=== PATIENT | female | born 1995 | race Caucasian/White ===

== ENCOUNTER 2017-03-13 16:56 | Emergency (ER) | payer OTHER ==
[2017-03-13 17:07] VITALS: BP 125/61
--- NOTE | 2017-03-13 18:31 | ED ---
Jaylon Murray Auryana, scribed for Gennaro Wu MD on 03/13/17 at 1741 . - HPI Summary HPI Summary: 21 year old female presents to ED in active labor - 39 weeks . Patient is having contracts less than 4 minutes apart. She denies any presence of blood. Patient is currently on Submutex treatment/therapy. Her PLASTIC PRODUCTS SALES REPRESENTATIVE is Dr. Fernandez in [place] - reports that they do not have a pediatric NICU and thus was told she would eventually have to give here at [facility]. (both vaginal births). PMHx is significant for brain surgery,and appendectomy. - History of Current Complaint Chief Complaint: EDOBProblems Stated Complaint: PT 39 WKS PREG/LABOR Time Seen by Provider: 03/13/17 17:05 Hx Obtained From: Patient Chief Complaint: Other: - labor in progress Onset/Duration: Started Minutes Ago Timing: Constant Severity: Severe Current Severity: Severe Pain Intensity: 10 Location of Pain: Other: - labor contraction Character: Cramping - severe Associated Signs and Symptoms: Positive: Negative. Negative: Vaginal Bleeding or Discharge - Allergies/Home Medications Allergies/Adverse Reactions: Allergies Allergy/AdvReac Type Severity Reaction Status Date / Time Chocolate Allergy Intermediate Hives Verified 03/13/17 17:30 dairy Allergy Intermediate Vomiting Uncoded 03/13/17 17:30 PMH/Surg Hx/FS Hx/Imm Hx Endocrine/Hematology History: Denies: Hx Diabetes Cardiovascular History: Denies: Hx Congestive Heart Failure, Hx Pacemaker/ICD Sensory History: Denies: Hx Hearing Aid Neurological History: Reports: Other Neuro Impairments/Disorders - subdural hematoma Psychiatric History: Denies: Hx Panic Disorder - Cancer History Cancer Type, Location and Year: cervical - Surgical History Surgery Procedure, Year, and Place: craniotomy, appendectomy Hx Anesthesia Reactions: No - Immunization History Date of Tetanus Vaccine: UTD Infectious Disease History: No Infectious Disease History: Denies: Traveled Outside the [place] in Last 30 Days - Family History Known Family History: Positive: Diabetes, Respiratory Disease - ASTHMA - Social History Alcohol Use: None Hx Substance Use: No Substance Use Type: Reports: None Hx Tobacco Use: Yes Smoking Status (MU): Light Every Day Tobacco Smoker Review of Systems Constitutional: Negative Eyes: Negative ENT: Negative Cardiovascular: Negative Respiratory: Negative Gastrointestinal: Negative Genitourinary: Negative Positive: Other - labor contractions Skin: Negative Neurological: Negative Psychological: Normal All Other Systems Reviewed And Are Negative: Yes Physical Exam - Summary Physical Exam Summary: VITAL SIGNS: Reviewed. GENERAL: Patient is a well-developed and nourished female who is lying comfortable in the stretcher. Patient is not in any acute respiratory distress. HEAD AND FACE: Normocephalic and atraumatic. EYES: PERRLA, EOMI x 2, No injected conjunctiva. EARS: Hearing grossly intact. Ear canals and tympanic membranes are WNL. MOUTH: Oropharynx within normal limits. NECK: Supple, trachea is midline, no adenopathy, no JVD. CHEST: Symmetric, no tenderness at palpation LUNGS: Clear to auscultation bilaterally. No wheezing or crackles. CVS: RRR, S1 and S2 present, no murmurs or gallops appreciated. ABDOMEN: Abdominal distention secondary to . Positive bowel sounds. No rebound no guarding, and no masses palpated. No abdominal bruit or pulsations. EXTREMITIES: FROM in all major joints, no edema, no cyanosis or clubbing. NEURO: Alert and oriented x 3. No acute neurological deficits. Speech is normal. SKIN: Dry and warm - Physical Exam Triage Information Reviewed: Yes Vital Signs Reviewed: Yes Diagnostics - Vital Signs Vital Signs Temp Pulse Resp BP Pulse Ox 03/13/17 17:06 98.3 F 86 20 125/61 99 03/13/17 17:02 98.1 F 77 16 125/61 100 - Laboratory Lab Statement: Any lab studies that have been ordered have been reviewed, and results considered in the medical decision making process. Course/Dx - Course Assessment/Plan: 21 year old female presents to ED in active labor. Patient is having contracts less than 4 minutes apart. She denies any presence of blood. Patient is currently on Subutex treatment/therapy. Her PLASTIC PRODUCTS SALES REPRESENTATIVE is Dr. Fernandez in [place] - reports that they do not have a pediatric NICU and thus was told she would eventually have to give here at [facility]. (both vaginal births). PMHx is significant for brain surgery,and appendectomy. In the ED she is anxious and having contractions every 4 min. SHe has no ROM. She did not allow me to do a pelvic exam because she thought the baby was . We spoke with Dr. Chavarria, who requested patient to be transported immediately to L&D department here at [facility]. I personally transported the patient to the labor and delivery department. She still is feeling cramping but no ruptured membranes. Dr. Chavarria will continue care of patient. - Differential Diagnosis/HQI/PQRI: Other: - Active labor - Diagnoses Provider Diagnoses: , Active labor at term Discharge - Discharge Plan Condition: Stable Disposition: ADMITTED TO [facility] The documentation as recorded by the Jaylon rahman Auryana accurately reflects the service I personally performed and the decisions made by me, Gennaro Wu MD.
== END 2017-03-13 17:36 | disposition short-term general hospital (02) ==
LOC: ED 16:56
DX: Z34.83 Encounter for supervision of other normal pregnancy, third trimester (principal); Z90.89 Acquired absence of other organs
CPT/HCPCS: 36415; 86703; 99282

== ENCOUNTER 2017-04-24 16:36 | Emergency (ER) | payer OTHER ==
[2017-04-24] MEDS ORDERED: Ketorolac INJ* 30 MG/ML 1 ML VIAL IV PUSH ONE (17:45)
[2017-04-24] MEDS ORDERED: NS 0.9% 1000 ML* 1,000 ML IV ONE (17:46)
[2017-04-24] MEDS ORDERED: Azithromycin TAB* 250 MG PO ONE (18:01)
[2017-04-24] MEDS ORDERED: cefTRIAXone VIAL(*) 1,000 MG VIAL IM ONE (18:01)
[2017-04-24] MEDS ORDERED: metroNIDAZOLE TAB* 250 MG PO ONE (18:03)
[2017-04-24 18:30] LABS: Hematocrit 38 % (35-47); Hemoglobin 12.9 g/dl (12.0-16.0); Mean Corpuscular HGB Conc 33 g/dl (31-36); Mean Corpuscular Hemoglobin 30 pg (27-31); Mean Corpuscular Volume 89 fL (80-97); Mean Platelet Volume 9 um3 (7.4-10.4); Red Blood Count 4.31 10^6/ul (4.0-5.4); Red Cell Distribution Width 18 % (10.5-15); White Blood Count 7.7 10^3/ul (3.5-10.8)
[2017-04-24 18:45] LABS: Albumin 4.3 g/dL (3.2-5.2); Calcium 9.2 mg/dL (8.6-10.3); EGFR African American 94.1 (>60); EGFR Non-African American 73.2 (>60); Globulin 2.6 g/dL (2-4); Potassium 3.7 mmol/L (3.5-5.0); Total Bilirubin 0.5 mg/dL (0.2-1.0); Total Protein 6.9 g/dL (6.4-8.9)
--- NOTE | 2017-04-24 18:48 | RAD ---
HISTORY: Abdominal pain, evaluate for retained products, endometritis COMPARISONS: None relevant available time dictation TECHNIQUE: Multiple transverse and longitudinal ultrasound images were obtained of the pelvis using grayscale, color Doppler, and spectral Doppler imaging using the transabdominal transducer. FINDINGS: UTERUS: The uterus measures 11.8 x 7.3 x 7.2 cm. The uterus is heterogeneous and enlarged, consistent with the recent state. ENDOMETRIUM: The endometrial stripe is smooth. The endometrium measures 0.7 cm in thickness. There is a small amount of fluid within the endometrial cavity. There is no hypervascularity to suggest retained products of conception. CUL-DE-SAC: There is a small amount of fluid within the pelvic cul-de-sac. RIGHT OVARY: The right ovary measures 2.8 x 1.7 x 2.9 cm. Normal arterial and venous waveforms are identifiable within the ovary on spectral Doppler imaging. LEFT OVARY: The left ovary measures 3.1 x 1.5 x 2.8 cm. Normal arterial and venous waveforms are identifiable within the ovary on spectral Doppler imaging. BLADDER: The bladder is not well visualized. OTHER: None IMPRESSION: 1. UTERUS. 2. SMALL AMOUNT OF FLUID WITHIN THE ENDOMETRIAL CAVITY. NO HYPERVASCULARITY TO SUGGEST RETAINED PRODUCTS OF CONCEPTION. 3. SMALL AMOUNT OF FLUID WITHIN THE PELVIC CUL-DE-SAC.
[2017-04-24] MEDS ORDERED: Lidocaine 1%* 5 ML VIAL INJ ONE (18:54)
[2017-04-24 20:14] LABS: Urine Bacteria 1+ (Absent); Urine Bilirubin Negative (Negative); Urine Glucose Negative (Negative); Urine Nitrite Positive (Negative)
[2017-04-24 22:23] VITALS: BP 96/56
--- NOTE | 2017-04-25 07:59 | ED ---
Progress - Progress Note Progress Note: called pt left message with family member that she needs to return call to ED and return to ED, will inform pt on her call back that her samples were unfortunately lost due to mislabeling and she needs to return to ER Course/Dx - Diagnoses Provider Diagnoses: abnormal vaginal discharge
== END 2017-04-24 22:22 ==
LOC: ED 16:36
DX: N89.8 Other specified noninflammatory disorders of vagina (principal)
CPT/HCPCS: 36415; 76856; 80053; 81003; 81015; 84702; 85027; 87077; 87086; 87186; 87480; 87491; 87510; 87591; 87661; 96360; 96372; 99283; A9270-GY; J0696; J1885

== ENCOUNTER 2017-04-25 12:06 | Emergency (ER) | payer OTHER ==
[2017-04-25 12:18] VITALS: BP 97/58
--- NOTE | 2017-04-25 16:31 | ED ---
GI/ HPI - HPI Summary HPI Summary: 22 female presents to have vaginal cultures re-done due to an issue with cultures obtained yesterday. Same symptoms as yesterday, including discharge with odor and some lower abdominal pain, with some improvement after first day dose of antibiotics. No other complaints. Patient was treated for V and STDs at yesterday's visit. Is here for diagnostic purposes only. - History of Current Complaint Chief Complaint: EDUrogenitalProblems Time Seen by Provider: 04/25/17 12:59 Stated Complaint: RECHECK Hx Obtained From: Patient Onset/Duration: Started Days Ago Timing: Constant Pain Intensity: 2 Pain Characteristics: Dull Additional Signs & Symptoms: Positive: Vaginal Bleeding, Vaginal Discharge - Allergy/Home Medications Allergies/Adverse Reactions: Allergies Allergy/AdvReac Type Severity Reaction Status Date / Time Chocolate Allergy Intermediate Hives Verified 04/25/17 12:16 dairy Allergy Intermediate Vomiting Uncoded 04/25/17 12:16 PMH/Surg Hx/FS Hx/Imm Hx Endocrine/Hematology History: Denies: Hx Diabetes Cardiovascular History: Denies: Hx Congestive Heart Failure, Hx Pacemaker/ICD Sensory History: Denies: Hx Hearing Aid Neurological History: Reports: Other Neuro Impairments/Disorders - subdural hematoma Psychiatric History: Denies: Hx Panic Disorder - Cancer History Cancer Type, Location and Year: cervical - Surgical History Surgery Procedure, Year, and Place: craniotomy, appendectomy Hx Anesthesia Reactions: No - Immunization History Date of Tetanus Vaccine: UTD Infectious Disease History: Denies: Traveled Outside the [place] in Last 30 Days - Family History Known Family History: Positive: Diabetes, Respiratory Disease - ASTHMA - Social History Alcohol Use: None Hx Substance Use: No Substance Use Type: Reports: None Substance Use Comment - Amount & Last Used: Subutex 8mg qd po Hx Tobacco Use: Yes Smoking Status (MU): Former Smoker Type: Cigarettes Review of Systems Constitutional: Negative Cardiovascular: Negative Respiratory: Negative Positive: Abdominal Pain Positive: see HPI, discharge All Other Systems Reviewed And Are Negative: Yes Physical Exam Triage Information Reviewed: Yes Vital Signs On Initial Exam: Initial Vitals Temp Pulse Resp BP Pulse Ox 97.8 F 55 16 97/58 98 04/25/17 12:16 04/25/17 12:16 04/25/17 12:16 04/25/17 12:16 08/27/17 12:16 Vital Signs Reviewed: Yes Appearance: Positive: Well-Appearing, No Pain Distress, Well-Nourished Skin: Positive: Warm, Skin Color Reflects Adequate Perfusion, Dry Head/Face: Positive: Normal Head/Face Inspection Eyes: Positive: Conjunctiva Inflammed ENT: Positive: Normal ENT inspection, Hearing grossly normal Neck: Positive: Supple Respiratory/Lung Sounds: Positive: Clear to Auscultation, Breath Sounds Present. Negative: Rales, Rhonchi, Wheezes Cardiovascular: Positive: Normal, RRR, Pulses are Symmetrical in both Upper and Lower Extremities. Negative: Murmur, Rub Abdomen Description: Positive: Nontender, No Organomegaly, Soft. Negative: Bruit, CVA Tenderness (R), CVA Tenderness (L), Distended, Guarding, McBurney's Point Tenderness, Peritoneal Signs Bowel Sounds: Positive: Present Pelvic Exam: Positive: external exam normal, speculum exam normal - besides discharge, bimanual exam normal, no cerv. motion tender, no masses, discharge - green purulent discharge coming from cervical os. Negative: active bleeding, tender w/ cervical motion Musculoskeletal: Positive: Normal, Strength/ROM Intact Neurological: Positive: Normal, Sensory/Motor Intact, Alert, Oriented to Person Place, Time Diagnostics - Vital Signs Vital Signs Temp Pulse Resp BP Pulse Ox 04/25/17 12:16 97.8 F 55 16 97/58 98 - Laboratory Lab Statement: Any lab studies that have been ordered have been reviewed, and results considered in the medical decision making process. GIGU Course/Dx - Course Course Of Treatment: cultures were obtained. patient already treated for both BV and STDs yesterday visit with flagyl and ceftriaxone. Patient feels somewhat better. Stil having discharge with some lower abdominal pain. Here for diagnostic purposes due to losing yesterdays obtained cultures. pending results , although already treated. aware of worsening signs and symptoms - Diagnoses Differential Diagnoses - Female: Other - to obtain vaginal cultures Provider Diagnoses: Vaginal discharge, Encounter for routine laboratory testing Discharge - Discharge Plan Condition: Stable Disposition: HOME Referrals: Laine Segundo MD [Primary Care Provider] - Additional Instructions: Continue medications as directed. You will hear about culture results if positive in a few days. Worse symptoms please return.
== END 2017-04-25 15:07 | disposition home or self-care (01) ==
LOC: ED 12:06
DX: N89.8 Other specified noninflammatory disorders of vagina (principal)
CPT/HCPCS: 87480; 87510; 87661; 99281

== ENCOUNTER 2017-11-17 10:16 | Emergency (ER) | payer OTHER, MEDICAID ==
[2017-11-17] MEDS ORDERED: cefTRIAXone VIAL(*) 1,000 MG VIAL IM ONE (13:01)
--- NOTE | 2017-11-17 14:16 | RAD ---
Indication: Bilateral pelvic pain. Comparison: April 24, 2017 Technique: Transvaginal pelvic ultrasound. Report: 7.6 x 5.0 x 5.1 cm retroverted uterus. IUD appears in appropriate position in the endometrial cavity. Physiologic small volume of free fluid in the cul-de-sac. 2.8 x 1.9 x 2.6 cm RIGHT ovary with documented vascular flow is remarkable for small follicles only. 3.7 x 1.9 x 1.8 cm LEFT ovary with documented vascular flow is remarkable for small follicles only. No visualized extra ovarian adnexal region lesions evident. IMPRESSION: 1. IUD appears in appropriate position. 2. Physiologic small volume of free fluid. 3. No suspicious ovarian or extraovarian adnexal region lesion evident.
--- NOTE | 2017-11-17 14:27 | UC ---
Servando Murray Jennifer, scribed for [facility]Bhaskar MD on 11/17/17 at 1200 . Abdominal Pain Female HPI - HPI Summary HPI Summary: In Room: The patient is a 22 year old female who complains of lower abdominal pain, fever, and chills that began three days ago. The patient reports that she is very prone to UTIs. During her last , she had a UTI that was resistant to antibiotics and had to stay at [facility] for two weeks in January 2017. The patient reports she woke up this morning with chills and nausea. She vomited last night but denies vomiting and diarrhea today. Jumping aggravates her abdominal pain. She adds that she hasnt been able to urinate for the past week, and reports dysuria when she tries to urinate. She states that she always feels dehydrated and keeps drinking water but still cannot urinate. The patient denies vaginal discharge, lower back pain, and chest pain. She additionally complains of her head feeling in the clouds and swelling behind the left ear. She has had a total of 6 pregnancies, which include 2 miscarriages, 3 live births, and 1 . The patient additionally adds that she had PID from chlamydia in the past. MD Note: Vital signs stable, afebrile, pulse ox 100. Pain 6/10 abdominal. No alcohol, no smoking. A previous history of visits for vomiting and fever. Previous history of UTI. Previous history of subdural hematoma. Nurse note: fever chills abd pain x 2 days - History of Current Complaint Chief Complaint: UCAbdominalPain Stated Complaint: ABD PAIN, PAINFUL URINATION Time Seen by Provider: 11/17/17 11:42 Hx Obtained From: Patient Hx Last Menstrual Period: 11/12/16 Onset/Duration: Sudden Onset, Lasting Days - 3 days, Still Present, Worse Since Timing: Constant Severity Initially: Moderate Severity Currently: Moderate Pain Intensity: 6 Pain Scale Used: 0-10 Numeric Location: Discrete At: RLQ, Discrete At: LUQ Radiates: No Aggravating Factor(s): Other: - Jumping Alleviating Factor(s): Nothing Associated Signs and Symptoms: Positive: Other: - fever, chills, nausea, vomiting, inability to urinate, head feeling "in the clouds", swelling behind left ear. NEGATIVE: diarrhea, vaginal discharge, lower back pain, chest pain Allergies/Adverse Reactions: Allergies Allergy/AdvReac Type Severity Reaction Status Date / Time dairy Allergy Intermediate Vomiting Uncoded 04/25/17 12:16 choclate Allergy Rash Uncoded 11/17/17 10:21 Home Medications: Home Medications Latuda 20 mg PO BEDTIME 11/17/17 [History Confirmed 11/17/17] Stoutland Carbonate [Stoutland Carbonate 600 mg cap] 600 mg PO BEDTIME 11/17/17 [ History Confirmed 11/17/17] PMH/Surg Hx/FS Hx/Imm Hx Previously Healthy: Yes - Hx of subdural hematoma, pelvic inflammatory disease. 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 Alcohol Use: None Substance Use Type: None Substance Use Comment - Amount & Last Used: Subutex 8mg qd po Smoking Status (MU): Former Smoker Type: Cigarettes Review of Systems Constitutional: Fever, Chills ENT: Other - swelling behind left ear Cardiovascular: Negative - chest pain Gastrointestinal: Negative - diarrhea, Abdominal Pain, Vomiting, Nausea Genitourinary: Negative - vaginal discharge, Dysuria, Other - inability to urinate Musculoskeletal: Negative - lower back pain Neurological: Other - Head feeling "in the clouds" All Other Systems Reviewed And Are Negative: Yes Physical Exam - Summary Physical Exam Summary: Appearance: The patient is well-appearing, is in no pain distress, and is well- nourished. Eyes: Conjunctiva are clear. ENT: SWOLLEN POSTERIOR CERVICAL LYMPH NODE ON THE LEFT SIDE.The hearing is grossly normal, the pharynx is normal, and the TMs are normal. There is no muffled or hoarse voice. Neck: The neck is supple and there is no lymphadenopathy. Respiratory: The chest is nontender. The lungs are clear, there are normal breath sounds, and there is no respiratory distress. Cardiovascular: Heart is regular rate and rhythm. There is no murmur. Abdomen: PAIN LOCATED IN RLQ AND LLQ. TENDER LLQ MORE SO THAN RLQ. NEGATIVE PERITONEAL SIGNS. MILD TENDERNESS. There is no organomegaly. GENITOURINARY: PELVIC EXAM: EGBUS NORMAL. VAGINAL VAULT. MINIMAL DISCHARGE, SLIGHT BLEEDING, CERVIX NORMAL. LAB TEST COMPLETED. BY MANUAL EXAMINATION, SHOWS MODERATE DISCOMFORT WITH CERVICAL MOTION. Bowel sounds: present Musculoskeletal: Strength is intact. The patient moves all extremities. Neurological: The patient is alert. Psychological: The patient displays age appropriate behavior Skin: Negative for rashes. Triage Information Reviewed: Yes Vital Signs: Initial Vital Signs Temp 97.8 F 11/17/17 10:25 Pulse 54 11/17/17 10:25 Resp 16 11/17/17 10:25 BP 110/63 11/17/17 10:25 Pulse Ox 100 11/17/17 10:25 Vital Signs Reviewed: Yes Diagnostics - Laboratory Diagnostic Studies Completed/Ordered: Transvaginal US. Interpreted by a radiologist. 1. IUD appears in appropriate position. 2. Physiologic small volume of free fluid. 3. No suspicious ovarian or extraovarian adnexal region lesion evident. Dr. Faith has reviewed this report. Abd Pain Female Course/Dx - Course Course Of Treatment: The patient is a 22 year old female with a history of complicated UTI during requiring admission and a PID from chlamydia in the past. Complains of dysuria, inability to urinate, and fever for the past 3 days. UA and test are negative. Her abdominal exam is positive for LLQ and RLQ pain with palpation. She does not have an acute abdomen. She denies vaginal discharge. She is afebrile and states that she has one partner. Her pelvic examination is consistent with PID. I will treat her for this and she will follow up. Medications have been included in the original chart and reviewed. - Differential Dx/Diagnosis Provider Diagnoses: Pelvic Inflammatory Disease Discharge - Sign-Out/Discharge Documenting (check all that apply): Discharge - Discharge Plan Condition: Stable Disposition: HOME Prescriptions: DOXYcycline CAP(*) [DOXYcycline 100MG CAP(*)] 100 mg PO BID #28 cap MDD 2 metroNIDAZOLE [Flagyl 500 MG TAB] 500 mg PO TID #28 tab MDD 2 Patient Education Materials: Pelvic Inflammatory Disease (ED) Referrals: Negrita Gregory NP [Primary Care Provider] - Additional Instructions: PLEASE SEEK CARE AT THE EMERGENCY DEPARTMENT IF SYMPTOMS WORSEN OR IF NEW SYMPTOMS DEVELOP. FOLLOW UP WITH YOUR PRIMARY CARE PHYSICIAN. WE DISCUSSED: 1.Your ultrasound does not show an abscess. you may need your IUD removed. Make sure to follow up with JOB COST ESTIMATOR TO CHECK. 2. We have sent specimens for culture. 3. You have been treated for both a urine infection and a pelvic infection. 4. You need to follow up with your doctor: see automobile radio repairer for recheck of your pain. 5. Go to ED for continued pain or temperature over the next two days. You should NOT have a fever. 6. I have given you medication by mouth to cover other possibilities: Doxycycline 100mg, twice a day and Flagyl 500mg, twice a day, for 14 days. - Billing Disposition and Condition Condition: STABLE Disposition: HOME The documentation as recorded by the Servando rahman Jennifer accurately reflects the service I personally performed and the decisions made by me, Bhaskar Faith MD.
[2017-11-17 14:39] VITALS: BP 121/72
--- NOTE | 2017-11-18 15:04 | PN ---
Progress Note - Progress Note Date of Service: 11/17/17 Note: Positive for Gardnerella Patient was placed on Flagyl prior to discharge This is appropriate treatment Nothing further at this time
== END 2017-11-17 14:30 | disposition home or self-care (01) ==
LOC: UCEAST 10:16
DX: N73.9 Female pelvic inflammatory disease, unspecified (principal); Z32.02 Encounter for pregnancy test, result negative; Z87.440 Personal history of urinary (tract) infections; Z87.891 Personal history of nicotine dependence
CPT/HCPCS: 76830; 81003; 84702; 87480; 87491; 87510; 87591; 87661; 96372; 99212; G0463; J0696

== ENCOUNTER 2018-04-19 20:14 | Emergency (ER) | payer OTHER ==
[2018-04-19 21:15] LABS: ABS Basophils 0 10^3/ul (0-0.2); ABS Eosinophils 0.2 10^3/ul (0-0.6); ABS Lymphocytes 1.6 10^3/ul (1.0-4.8); ABS Monocytes 0.8 10^3/ul (0-0.8); ABS Neutrophils 5.3 10^3/ul (1.5-7.7); ABS Nucleated RBC 0 10^3/ul; Hematocrit 36 % (35-47); Hemoglobin 12.3 g/dl (12.0-16.0); Lymphocyte % 20.1 % (25-47); Mean Corpuscular HGB Conc 34 g/dl (31-36); Mean Corpuscular Hemoglobin 31 pg (27-31); Mean Corpuscular Volume 91 fL (80-97); Mean Platelet Volume 7.7 um3 (7.4-10.4); Nucleated Red Blood Cells % 0.1; Platelet Count 296 10^3/ul (150-450); Red Blood Count 3.93 10^6/ul (4.00-5.40); Red Cell Distribution Width 13 % (10.5-15); White Blood Count 7.9 10^3/ul (3.5-10.8)
[2018-04-19 21:29] LABS: EGFR Non-African American 76.3 (>60)
[2018-04-19] MEDS ORDERED: Ondansetron INJ* 2 MG/ML VIAL IV ONE (22:11)
[2018-04-19] MEDS ORDERED: Ketorolac INJ* 30 MG/ML 1 ML VIAL IV PUSH ONE (22:11)
[2018-04-19] MEDS ORDERED: NS 0.9% 1000 ML* 2,000 ML IV ONE (22:11)
--- NOTE | 2018-04-19 22:13 | ED ---
Abdominal Pain/Female - HPI Summary HPI Summary: This patient is a 23 year old F presenting [place] [facility] by friend with a chief complaint of lower abd pain that began 5 days ago. The patient rates the pain 6/10 in severity. Symptoms aggravated by nothing. Symptoms alleviated by nothing. Patient reports fatigue, dysuria, chills, myalgia, and vomiting. Patient denies vaginal discharge and vaginal itching. Patient reports a history of bladder infections. Pt states she is supposed to be on treatment for a UTI, but is unable to brain picker her medication due to insurance issues. - History of Current Complaint Chief Complaint: EDAbdPain Stated Complaint: VOMITING Time Seen by Provider: 04/19/18 22:05 Hx Obtained From: Patient Hx Last Menstrual Period: 11/12/16 ?: No Onset/Duration: Sudden Onset, Lasting Days, Still Present Timing: Constant Severity Initially: Moderate Severity Currently: Moderate Pain Intensity: 6 Pain Scale Used: 0-10 Numeric Location: Other - Lower Radiates: No Aggravating Factor(s): Nothing Alleviating Factor(s): Nothing Associated Signs and Symptoms: Positive: Other: - Positive fatigue, dysuria, chills, myalgia, and vomiting. Negative vaginal discharge and vaginal itching. Allergies/Adverse Reactions: Allergies Allergy/AdvReac Type Severity Reaction Status Date / Time dairy Allergy Intermediate Vomiting Uncoded 04/19/18 20:20 choclate Allergy Rash Uncoded 04/19/18 20:20 PMH/Surg Hx/FS Hx/Imm Hx Previously Healthy: No Endocrine/Hematology History: Denies: Hx Diabetes Cardiovascular History: Denies: Hx Congestive Heart Failure, Hx Pacemaker/ICD Sensory History: Denies: Hx Hearing Aid Neurological History: Reports: Other Neuro Impairments/Disorders - subdural hematoma Psychiatric History: Denies: Hx Panic Disorder - Cancer History Cancer Type, Location and Year: cervical - Surgical History Surgery Procedure, Year, and Place: craniotomy, appendectomy Hx Anesthesia Reactions: No - Immunization History Date of Tetanus Vaccine: UTD Infectious Disease History: No Infectious Disease History: Denies: Traveled Outside the [place] in Last 30 Days - Family History Known Family History: Positive: Diabetes, Respiratory Disease - ASTHMA, Other - Angina - Social History Occupation: Unemployed Lives: Alone Alcohol Use: None Hx Substance Use: No Substance Use Type: Reports: None Substance Use Comment - Amount & Last Used: Subutex 8mg qd po Hx Tobacco Use: Yes Smoking Status (MU): Former Smoker Type: Cigarettes Review of Systems Positive: Chills, Fatigue Positive: Abdominal Pain, Vomiting Genitourinary: Other - Negative vaginal discharge and vaginal itching Positive: dysuria Positive: Myalgia All Other Systems Reviewed And Are Negative: Yes Physical Exam - Summary Physical Exam Summary: Appearance: Well-appearing, Well-nourished, lying in bed comfortably Skin: Warm, dry, no obvious rash Eyes: sclera anicteric, no conjunctival pallor ENT: mucous membranes moist, pharynx appears normal Neck: Supple, nontender Respiratory: Clear to auscultation, no signs of respiratory distress Cardiovascular: Normal S1, S2. No murmurs. Normal distal pulses in tibial and radial bilaterally. Abdomen: Soft, normal active bowel sounds present. Left sided abdominal tenderness with no guarding. No CVA tenderness Musculoskeletal: Normal, Strength/ROM Intact Neurological: A&Ox3, awake and alert, mentation is normal, speech is fluent and appropriate Psychiatric: affect is normal, does not appear anxious or depressed Triage Information Reviewed: Yes Vital Signs On Initial Exam: Initial Vitals Temp Pulse Resp BP Pulse Ox 98.5 F 66 16 110/70 97 04/19/18 20:17 04/19/18 20:17 04/19/18 20:17 04/19/18 20:17 04/19/18 20:17 Vital Signs Reviewed: Yes Diagnostics - Vital Signs Vital Signs Temp Pulse Resp BP Pulse Ox 04/19/18 20:17 98.5 F 66 16 110/70 97 - Laboratory Lab Results: Lab Results 04/19/18 04/19/18 04/19/18 Range/Units 21:03 21:03 21:03 WBC 7.9 (3.5-10.8) 10^3/ul RBC 3.93 L (4.00-5.40) 10^6/ul Hgb 12.3 (12.0-16.0) g/dl Hct 36 (35-47) % MCV 91 (80-97) fL MCH 31 (27-31) pg MCHC 34 (31-36) g/dl RDW 13 (10.5-15) % Plt Count 296 (150-450) 10^3/ul MPV 7.7 (7.4-10.4) um3 Neut % (Auto) 66.7 (38-83) % Lymph % (Auto) 20.1 L (25-47) % [place] % (Auto) 9.8 H (0-7) % Eos % (Auto) 3.0 (0-6) % Baso % (Auto) 0.4 (0-2) % Absolute Neuts (auto) 5.3 (1.5-7.7) 10^3/ul Absolute Lymphs (auto) 1.6 (1.0-4.8) 10^3/ul Absolute Monos (auto) 0.8 (0-0.8) 10^3/ul Absolute Eos (auto) 0.2 (0-0.6) 10^3/ul Absolute Basos (auto) 0 (0-0.2) 10^3/ul Absolute Nucleated RBC 0 10^3/ul Nucleated RBC % 0.1 Sodium 138 (135-145) mmol/L Potassium 4.4 (3.5-5.0) mmol/L Chloride 104 (101-111) mmol/L Carbon Dioxide 30 (22-32) mmol/L Anion Gap 4 (2-11) mmol/L BUN 19 (6-24) mg/dL Creatinine 0.90 (0.51-0.95) mg/dL Est GFR ( Amer) 92.3 (>60) Est GFR (Non-Af Amer) 76.3 (>60) BUN/Creatinine Ratio 21.1 H (8-20) Glucose 96 (70-100) mg/dL Lactic Acid 0.5 (0.5-2.0) mmol/L Calcium 9.6 (8.6-10.3) mg/dL Total Bilirubin 0.40 (0.2-1.0) mg/dL AST 14 (13-39) U/L ALT 9 (7-52) U/L Alkaline Phosphatase 54 (34-104) U/L C-Reactive Protein 1.00 (<8.01) mg/L Total Protein 7.3 (6.4-8.9) g/dL Albumin 4.6 (3.2-5.2) g/dL Globulin 2.7 (2-4) g/dL Albumin/Globulin Ratio 1.7 (1-3) Lipase 11 (11.0-82.0) U/L Beta HCG, Quant < 0.60 mIU/mL Result Diagrams: 04/19/18 21:03 04/19/18 21:03 Lab Statement: Any lab studies that have been ordered have been reviewed, and results considered in the medical decision making process. Abdominal Pain Fem Course/Dx - Diagnoses Provider Diagnoses: Pyelonephritis Discharge - Sign-Out/Discharge Documenting (check all that apply): Patient Departure - Discharge Plan Condition: Good Disposition: HOME Prescriptions: Nitrofurantoin Monohyd/M-Cryst [Macrobid 100 mg Capsule] 100 mg PO BID #20 cap Ondansetron [Zofran Odt] 8 mg PO TID PRN #12 tab.rapdis PRN Reason: Nausea/Vomiting Patient Education Materials: Kidney Infection (ED) Referrals: Charissa Raphael MD [Primary Care Provider] - - Billing Disposition and Condition Condition: GOOD Disposition: Home - Attestation Statements Document Initiated by Scribe: Yes Documenting Scribe: Vijaya Culver Provider For Whom Scribe is Documenting (Include Credential): Eleuterio Mcmahon MD Scribe Attestation: Vijaya Murray, scribed for Eleuterio Mcmahon MD on 04/20/18 at 0422. Scribe Documentation Reviewed: Yes Provider Attestation: The documentation as recorded by the Vijaya rahman accurately reflects the service I personally performed and the decisions made by me, Eleuterio Mcmahon MD
[2018-04-19] MEDS ORDERED: Ondansetron INJ* 2 MG/ML VIAL ONE (22:14)
[2018-04-19] MEDS ORDERED: Ketorolac INJ* 30 MG/ML 1 ML VIAL ONE (22:14)
[2018-04-19 22:45] LABS: Urine Appearance Cloudy; Urine Blood Negative (Negative); Urine Color Yellow; Urine Ketones Negative (Negative); Urine Protein Negative (Negative); Urine Red Blood Cell 2+(6-10/hpf) (Absent); Urine Specific Gravity 1.026 (1.010-1.030); Urine Urobilinogen Negative (Negative); Urine White Blood Cell 3+(>20/hpf) (Absent)
[2018-04-19] MEDS ORDERED: cefTRIAXone(*) 1 GM in NS 0.9% 50 ML* 50 ML IVPB ONE (23:35)
[2018-04-20 00:09] VITALS: BP 100/77
--- NOTE | 2018-04-22 06:43 | PN ---
Progress Note - Progress Note Date of Service: 04/22/18 Note: Patient urine culture grew 75-100,000 Escherichia coli. Patient placed on Macrobid. Will wait for final culture for sensitivity.
--- NOTE | 2018-04-23 06:38 | PN ---
Progress Note - Progress Note Date of Service: 04/19/18 Note: Pt. started on Macrobid on 04/19 for a UTI. Final urine culture today is growing 75-100k e.coli susceptible to macrobid. No change in treatment needed at this time.
== END 2018-04-20 00:14 | disposition home or self-care (01) ==
LOC: ED 20:14
DX: N10 Acute pyelonephritis (principal); B96.20 Unspecified Escherichia coli [E. coli] as the cause of diseases classified elsewhere; R53.83 Other fatigue; M79.1 Myalgia; R11.10 Vomiting, unspecified; Z85.41 Personal history of malignant neoplasm of cervix uteri; Z87.891 Personal history of nicotine dependence
CPT/HCPCS: 36415; 80053; 81003; 81015; 83605; 83690; 84702; 85025; 86140; 87077; 87086; 87186; 96365; 96375; 99283; J0696; J1885; J2405